=== PATIENT | female | born 1980 | race Caucasian/White ===

== ENCOUNTER 2018-07-01 19:45 | Outpatient (CLI) | payer MEDICAID | END 2018-07-01 21:55 | disposition home or self-care (01) | LOC: OBT 19:45 → L-D 19:47 → OBT 21:55 | DX: O36.5930 Maternal care for other known or suspected poor fetal growth, third trimester, not applicable or unspecified (principal); O09.523 Supervision of elderly multigravida, third trimester; Z3A.35 35 weeks gestation of pregnancy | CPT/HCPCS: 76815; 76818 ==

== ENCOUNTER 2018-07-04 20:36 | Outpatient (CLI) | payer MEDICAID | END 2018-07-04 22:40 | disposition home or self-care (01) | LOC: OBT 20:36 → L-D 20:36 → OBT 22:40 | DX: O36.5930 Maternal care for other known or suspected poor fetal growth, third trimester, not applicable or unspecified (principal); Z3A.35 35 weeks gestation of pregnancy | CPT/HCPCS: 76818 ==

== ENCOUNTER 2018-07-26 05:17 | Inpatient (IN) | payer MEDICAID ==
[2018-07-26] MEDS ORDERED: EPHEDrine 25 MG/5 ML SYG (07:00)
[2018-07-26] MEDS ORDERED: OXYTOCIN 10 UNIT INJ (07:00)
[2018-07-26 07:27] LABS: ADD MAN DIFF? NO
[2018-07-26] MEDS ORDERED: OXYTOCIN 30 UNITS/LR 500 ML IV (07:30)
[2018-07-26] MEDS ORDERED: METHYLERGONOVINE 0.2 MG INJ IM (07:30)
[2018-07-26] MEDS ORDERED: MISOPROSTOL 200 MCG TAB PR ×2 (07:30→09:00)
[2018-07-26] MEDS ORDERED: CARBOPROST 250 MCG INJ IM (07:30)
[2018-07-26 07:34] LABS: WHITE BLOOD COUNT 10.4 10^3/ul (4.8-10.8)
[2018-07-26 07:34] LABS: BASOPHILS % 0.3 % (0.0-2.0); EOSINOPHILS # 0.1 10^3/ul (0.0-0.5); EOSINOPHILS % 0.6 % (0.0-7.0); HEMATOCRIT 35.4 % (37.0-47.0); HEMOGLOBIN 10.9 g/dl (12.0-16.0); LYMPHOCYTES # 1.7 10^3/ul (0.8-2.9); MEAN CORPUSCULAR HEMOGLOBIN 25.8 pg (29.0-33.0); MEAN CORPUSCULAR HGB CONC 30.8 g/dl (32.0-37.0); MEAN CORPUSCULAR VOLUME 83.9 fl (82.0-101.0); MEAN PLATELET VOLUME 12.4 fl (7.4-10.4); MONOCYTE # 0.6 10^3/ul (0.3-0.9); MONOCYTES % 5.9 % (0.0-11.0); NEUTROPHILS % 76.7 % (39.0-77.0); PLATELET COUNT 163 10^3/UL (140-415); RED BLOOD COUNT 4.22 10^6/ul (4.20-5.40); RED CELL DISTRIBUTION WIDTH 15.9 % (11.5-14.5)
[2018-07-26 07:53] LABS: PROTIME 12.3 Sec (11.9-14.9)
[2018-07-26 07:54] LABS: PARTIAL THROMBOPLASTIN TIME 26.9 Sec (23.0-35.0)
[2018-07-26] MEDS: LACTATED RINGER'S 1,000 ML IV ×5 (08:02→23:30)
[2018-07-26] MEDS ORDERED: DIPHENHYDRAMINE 50 MG INJ IV ×2 (08:30)
[2018-07-26] MEDS ORDERED: HYDROmorphONE 0.5 MG/0.5 ML SYG IV ×2 (08:30)
[2018-07-26] MEDS ORDERED: ZOLPIDEM 5 MG TAB PO (08:30)
[2018-07-26] MEDS ORDERED: MEPERIDINE 25 MG INJ IV (08:30)
[2018-07-26] MEDS ORDERED: NALBUPHINE HCL (10 MG/1 ML) INJ IV (08:30)
[2018-07-26] MEDS ORDERED: NALOXONE (0.4 MG/ML) INJ IV (08:30)
[2018-07-26 08:31] LABS: HEPATITIS B SURFACE ANTIGEN NEGATIVE (NEGATIVE)
[2018-07-26] MEDS ORDERED: morphine SULFATE/PF (10 MG/10 ML) INJ (08:59)
[2018-07-26] MEDS ORDERED: OXYCODONE/ACETAMINOPHEN (5/325) TAB PO ×2 (09:00)
[2018-07-26] MEDS ORDERED: NA PHOSPHATE/BIPHOS 133 ML ENEMA PR (09:00)
[2018-07-26] MEDS: SENNA/DOCUSATE NA (8.6MG/50MG) TAB PO ×2 (09:00→21:59)
[2018-07-26] MEDS ORDERED: ONDANSETRON 4 MG INJ (09:11)
[2018-07-26] MEDS ORDERED: METOCLOPRAMIDE 10 MG INJ (09:12)
[2018-07-26] MEDS ORDERED: MIDAZOLAM 1 MG/ML 2 ML INJ (09:40)
[2018-07-26] MEDS: CEFAZOLIN 2 GM/50 ML (PMX) 50 ML IVPB (10:59)
[2018-07-26] MEDS: OXYTOCIN 30 UNITS/LR 500 ML IV (11:10)
[2018-07-26] MEDS: ONDANSETRON 4 MG INJ IV (11:42)
[2018-07-26 17:44] LABS: RAPID PLASMA REAGIN NONREACTIVE (NR)
[2018-07-27] MEDS: KETOROLAC 30 MG INJ IV (05:28)
[2018-07-27] MEDS: LANOLIN HPA 1 PKT TOP (05:29)
[2018-07-27 06:48] LABS: ADD MAN DIFF? NO
[2018-07-27 06:55] LABS: BASOPHILS % 0.3 % (0.0-2.0); EOSINOPHILS % 0.3 % (0.0-7.0); HEMATOCRIT 28.8 % (37.0-47.0); HEMOGLOBIN 8.9 g/dl (12.0-16.0); LYMPHOCYTES # 1.9 10^3/ul (0.8-2.9); LYMPHOCYTES % 14.9 % (15.0-51.0); MEAN CORPUSCULAR HEMOGLOBIN 25.9 pg (29.0-33.0); MEAN CORPUSCULAR HGB CONC 30.9 g/dl (32.0-37.0); MEAN CORPUSCULAR VOLUME 83.7 fl (82.0-101.0); MONOCYTE # 0.9 10^3/ul (0.3-0.9); MONOCYTES % 6.8 % (0.0-11.0); NEUTROPHIL # 10.1 10^3/ul (1.6-7.5); NEUTROPHILS % 77.2 % (39.0-77.0); PLATELET COUNT 151 10^3/UL (140-415); RED BLOOD COUNT 3.44 10^6/ul (4.20-5.40); RED CELL DISTRIBUTION WIDTH 16.3 % (11.5-14.5)
[2018-07-27] MEDS: LACTATED RINGER'S 1,000 ML IV ×2 (07:06→15:06)
[2018-07-27] MEDS: SENNA/DOCUSATE NA (8.6MG/50MG) TAB PO ×2 (08:49→21:16)
[2018-07-27] MEDS: IBUPROFEN 600 MG TAB PO ×3 (12:01→23:35)
[2018-07-28] MEDS: IBUPROFEN 600 MG TAB PO ×3 (05:39→16:04)
[2018-07-28] MEDS: SENNA/DOCUSATE NA (8.6MG/50MG) TAB PO (10:00)
[2018-07-29] MEDS ORDERED: DIPHTH/TET/ACEL PERTUSS (ADULT) 0.5 ML VIAL IM* (09:00)
[2018-07-29] MEDS ORDERED: MEASLES,MUMPS,RUBELLA VACCINE INJ SC* (09:00)
== END 2018-07-28 17:42 | disposition home or self-care (01) | DRG 785 ==
LOC: L-D 05:17 → PP1 13:30
PROVIDERS: Specialist
PROC: 10D00Z1 Extraction of Products of Conception, Low, Open Approach (ICD-10-PCS; principal; 2018-07-26 08:00)
PROC: 0UB70ZZ Excision of Bilateral Fallopian Tubes, Open Approach (ICD-10-PCS; 2018-07-26 08:00)
DX: O34.211 Maternal care for low transverse scar from previous cesarean delivery (principal); Z3A.39 39 weeks gestation of pregnancy; Z37.0 Single live birth; Z30.2 Encounter for sterilization
CPT/HCPCS: 85025; 85610; 85730; 86592; 86850; 86900; 86901; 87340; 88302; 99464